=== PATIENT | female | born 1970 | race Caucasian/White ===

== ENCOUNTER 2017-04-03 10:04 | Emergency (ER) | payer OTHER ==
[~2017-04-03] VITALS: Ht 172.7 cm; Wt 90.7 kg
[~2017-04-03 10:04] MED LIST: ANTIVERT25 M1 PO; AVAPRO300 MG PO; CARDIZEM CD180 M1 PO; CARDIZEM CD240 MG PO; CARTIA XT180 MG PO; CARdura 2MG TABLET PO; CEFTIN250 MG/5 M PO; CIPRO500 MG PO; COUMADIN2 MG PO; COZAAR50 MG PO; DOXAZOSIN MESYLA1 MG PO; DURAGESIC1 EACH TD; FLAGYL500MG PO; FOLIC ACID1 MG PO; INTEGRA PLUS C1 EACH PO; INTESTINEX1 CA1 PO; INTESTINEX1 CAP PO; IRBESARTAN300 MG PO; LEVSIN/SL0.125 MG PO; MACRODANTIN100 MG PO; MEDROLPACK PO; Neurin-Sl Tablet Sl SL; OMEPRAZOLE20 M1 PO; ORPH100T PO; PERCOCET 5/321 UDTAB PO; PERCOCET 5/3251 TAB PO; PROTONIX40 MG PO; SINGULAIR5 MG PO; TIGAN300 MG PO; TRAM1TAB98 PO; TRAMADOL HCL-AP1 TAB PO; ZANTAC150 M3 PO; ZOFRAN4 MG PO; ZOFRAN8 MG PO
[2017-04-03] MEDS ORDERED: NEURONTIN600 MG (10:32)
[2017-04-03] MEDS ORDERED: CATAFLAN (10:32)
== END 2017-04-03 20:23 | disposition home or self-care (01) ==
LOC: ER 10:04
DX: N20.0 Calculus of kidney (principal); R10.814 Left lower quadrant abdominal tenderness

== ENCOUNTER → 2017-04-25 | Emergency (ER) | payer OTHER ==
[~2017-04-25] VITALS: Ht 172.7 cm; Wt 90.7 kg
[~2017-04-25] MED LIST changes: +CATAFLAN; +NEURONTIN600 MG; +ZOFRAN ODT4 MG PO
== END | disposition home or self-care (01) ==
LOC: ER 20:04
DX: K52.9 Noninfective gastroenteritis and colitis, unspecified (principal)

== ENCOUNTER → 2017-05-29 | Emergency (ER) | payer OTHER ==
[~2017-05-29] VITALS: Ht 172.7 cm; Wt 90.7 kg
[~2017-05-29] MED LIST changes: +VISTARIL50 MG PO
== END | disposition home or self-care (01) ==
LOC: ER 23:39
DX: R00.2 Palpitations (principal); F41.8 Other specified anxiety disorders; T48.6X5A Adverse effect of antiasthmatics, initial encounter; Y92.89 Other specified places as the place of occurrence of the external cause

== ENCOUNTER → 2017-05-30 | Emergency (ER) | payer OTHER ==
[~2017-05-30] VITALS: Ht 172.7 cm; Wt 90.7 kg
== END | disposition home or self-care (01) ==
LOC: ER 18:42
DX: K52.9 Noninfective gastroenteritis and colitis, unspecified (principal)

== ENCOUNTER 2017-06-14 20:15 | Emergency (ER) | payer OTHER ==
[~2017-06-14] VITALS: Ht 172.7 cm; Wt 90.7 kg
== END 2017-06-15 12:42 | disposition home or self-care (01) ==
LOC: ER 20:15
DX: L03.116 Cellulitis of left lower limb (principal); L03.115 Cellulitis of right lower limb; R11.0 Nausea

== ENCOUNTER 2017-06-21 10:42 | Outpatient (CLI) | payer OTHER | END 2017-06-21 10:55 | disposition home or self-care (01) | LOC: SONOGRAMA 10:42 | DX: R59.0 Localized enlarged lymph nodes (principal) ==

== ENCOUNTER 2017-08-25 13:41 | Emergency (ER) | payer OTHER ==
[~2017-08-25] VITALS: Ht 172.7 cm; Wt 90.7 kg
== END 2017-08-25 20:32 | disposition home or self-care (01) ==
LOC: ER 13:41 → CPU-OBS 14:08 → ER 20:32
DX: R07.89 Other chest pain (principal); T45.515A Adverse effect of anticoagulants, initial encounter; Y92.098 Other place in other non-institutional residence as the place of occurrence of the external cause
CPT/HCPCS: G0378; G0379; 93005

== ENCOUNTER 2017-09-30 10:31 | Emergency (ER) | payer OTHER ==
[~2017-09-30] VITALS: Ht 170.2 cm; Wt 83.9 kg
== END 2017-09-30 16:08 | disposition home or self-care (01) ==
LOC: ER 10:31
DX: N39.0 Urinary tract infection, site not specified (principal); M54.5 Low back pain; F06.4 Anxiety disorder due to known physiological condition

== ENCOUNTER 2017-10-12 08:37 | Outpatient (CLI) | payer OTHER | END 2017-10-12 12:34 | disposition home or self-care (01) | LOC: SONOGRAMA 08:37 | DX: I82.513 Chronic embolism and thrombosis of femoral vein, bilateral (principal) ==

== ENCOUNTER 2017-12-29 10:07 | Outpatient (CLI) | payer OTHER | END 2017-12-29 10:18 | disposition home or self-care (01) | LOC: SONOGRAMA 10:07 → MAMO-SONO 10:15 → SONOGRAMA 10:18 | DX: E04.1 Nontoxic single thyroid nodule (principal); E83.52 Hypercalcemia; E78.2 Mixed hyperlipidemia; I11.9 Hypertensive heart disease without heart failure; I82.503 Chronic embolism and thrombosis of unspecified deep veins of lower extremity, bilateral; E56.8 Deficiency of other vitamins; R73.01 Impaired fasting glucose ==

== ENCOUNTER 2018-01-03 02:10 | Emergency (ER) | payer OTHER ==
[~2018-01-03] VITALS: Ht 172.7 cm; Wt 84.4 kg
[2018-01-03] MEDS ORDERED: ATIVAN0.5 M1 (02:34)
== END 2018-01-03 08:48 | disposition home or self-care (01) ==
LOC: ER 02:10
DX: T42.4X5A Adverse effect of benzodiazepines, initial encounter (principal); R25.8 Other abnormal involuntary movements

== ENCOUNTER 2018-03-19 08:40 | Outpatient (CLI) | payer OTHER ==
[~2018-03-19 08:40] MED LIST changes: +ATIVAN0.5 M1
== END 2018-03-19 09:30 | disposition home or self-care (01) ==
LOC: NUCLEAR 08:40
DX: E83.52 Hypercalcemia (principal); E78.2 Mixed hyperlipidemia; I11.9 Hypertensive heart disease without heart failure; I82.503 Chronic embolism and thrombosis of unspecified deep veins of lower extremity, bilateral; E21.0 Primary hyperparathyroidism; E55.9 Vitamin D deficiency, unspecified; E56.8 Deficiency of other vitamins; R73.01 Impaired fasting glucose
CPT/HCPCS: 78070; A9500

== ENCOUNTER 2018-03-25 19:40 | Emergency (ER) | payer OTHER ==
[~2018-03-25] VITALS: Ht 172.7 cm; Wt 83.9 kg
== END 2018-03-25 20:55 | disposition home or self-care (01) ==
LOC: ER 19:40
DX: R07.89 Other chest pain (principal); I10 Essential (primary) hypertension; M54.32 Sciatica, left side; I80.10 Phlebitis and thrombophlebitis of unspecified femoral vein

== ENCOUNTER 2018-04-03 07:25 | Outpatient (CLI) | payer OTHER ==
[~2018-04-03 07:25] MED LIST changes: -NEURONTIN600 MG; +NEURONTIN600 MG PO
== END 2018-04-03 08:00 | disposition home or self-care (01) ==
LOC: NUCLEAR 07:25
DX: I20.9 Angina pectoris, unspecified (principal)
CPT/HCPCS: 78452; 93017; J0153; A9500

== ENCOUNTER 2018-04-08 22:48 | Emergency (ER) | payer OTHER ==
[~2018-04-08] VITALS: Ht 172.7 cm; Wt 83.9 kg
[2018-04-08] MEDS ORDERED: REGLAN5 MG/5 ML (23:36)
[2018-04-10] MEDS ORDERED: NABUMETONE750 MG PO (14:15)
== END 2018-04-09 08:12 | disposition home or self-care (01) ==
LOC: ER 22:48
DX: K57.92 Diverticulitis of intestine, part unspecified, without perforation or abscess without bleeding (principal); R10.32 Left lower quadrant pain

== ENCOUNTER 2018-04-10 13:47 | Emergency (ER) | payer OTHER ==
[~2018-04-10] VITALS: Ht 172.7 cm; Wt 83.9 kg
[~2018-04-10 13:47] MED LIST changes: +REGLAN5 MG/5 ML
[2018-04-10] MEDS ORDERED: NABUMETONE750 MG PO (14:15)
== END 2018-04-10 17:57 | disposition home or self-care (01) ==
LOC: ER 13:47
DX: N20.0 Calculus of kidney (principal); K52.9 Noninfective gastroenteritis and colitis, unspecified; R10.13 Epigastric pain

== ENCOUNTER 2018-04-25 08:21 | Outpatient (CLI) | payer OTHER ==
[~2018-04-25 08:21] MED LIST changes: +NABUMETONE750 MG PO
[2018-05-01] MEDS ORDERED: PROMETHAZINE HC25 MG PO (02:39)
[2018-05-01] MEDS ORDERED: SKELAXIN800 MG PO (02:39)
[2018-05-01] MEDS ORDERED: ZOFRAN ODT4 MG SL (02:55)
== END 2018-04-25 09:00 | disposition home or self-care (01) ==
LOC: NUCLEAR 08:21
DX: I73.9 Peripheral vascular disease, unspecified (principal); I87.2 Venous insufficiency (chronic) (peripheral); M89.9 Disorder of bone, unspecified; R93.5 Abnormal findings on diagnostic imaging of other abdominal regions, including retroperitoneum

== ENCOUNTER → 2018-04-26 | Outpatient (CLI) | payer OTHER ==
[~2018-04-26] MED LIST changes: +PROMETHAZINE HC25 MG PO; +SKELAXIN800 MG PO; +ZOFRAN ODT4 MG SL
== END | disposition home or self-care (01) ==
LOC: NUCLEAR 09:47
DX: I87.2 Venous insufficiency (chronic) (peripheral) (principal); I73.9 Peripheral vascular disease, unspecified; M89.9 Disorder of bone, unspecified; R93.5 Abnormal findings on diagnostic imaging of other abdominal regions, including retroperitoneum

== ENCOUNTER → 2018-04-30 | Emergency (ER) | payer OTHER ==
[~2018-04-30] VITALS: Ht 172.7 cm; Wt 81.6 kg
== END | disposition home or self-care (01) ==
LOC: ER 21:19
DX: M94.0 Chondrocostal junction syndrome [Tietze] (principal); R07.89 Other chest pain

== ENCOUNTER 2018-10-01 13:45 | Outpatient (CLI) | payer OTHER | END 2018-10-01 14:13 | disposition home or self-care (01) | LOC: NUCLEAR 13:45 | DX: I87.2 Venous insufficiency (chronic) (peripheral) (principal) ==

== ENCOUNTER 2018-11-08 12:43 | Emergency (ER) | payer OTHER ==
[~2018-11-08] VITALS: Ht 172.7 cm; Wt 81.6 kg
[2018-11-08] MEDS ORDERED: CIPRO500 MG PO (21:43)
[2018-11-08] MEDS ORDERED: FLAGYL500MG PO (21:43)
== END 2018-11-08 21:56 | disposition home or self-care (01) ==
LOC: ER 12:43
DX: K57.92 Diverticulitis of intestine, part unspecified, without perforation or abscess without bleeding (principal); N20.0 Calculus of kidney; R10.32 Left lower quadrant pain

== ENCOUNTER 2018-11-27 15:50 | Emergency (ER) | payer OTHER ==
[~2018-11-27] VITALS: Ht 172.7 cm; Wt 83.9 kg
== END 2018-11-27 18:59 | disposition home or self-care (01) ==
LOC: ER 15:50
DX: S80.02XA Contusion of left knee, initial encounter (principal); S70.02XA Contusion of left hip, initial encounter; S40.012A Contusion of left shoulder, initial encounter; S30.0XXA Contusion of lower back and pelvis, initial encounter; W18.39XA Other fall on same level, initial encounter; Y93.89 Activity, other specified; Y92.89 Other specified places as the place of occurrence of the external cause; Y99.8 Other external cause status

== ENCOUNTER 2019-02-01 15:07 | Emergency (ER) | payer OTHER ==
[~2019-02-01] VITALS: Ht 172.7 cm; Wt 86.6 kg
== END 2019-02-01 19:17 | disposition home or self-care (01) ==
LOC: ER 15:07
DX: M94.0 Chondrocostal junction syndrome [Tietze] (principal)

== ENCOUNTER 2019-04-01 10:19 | Outpatient (CLI) | payer OTHER | END 2019-04-01 10:29 | disposition home or self-care (01) | LOC: MAMO-SONO 10:19 | DX: Z12.31 Encounter for screening mammogram for malignant neoplasm of breast (principal); N63.10 Unspecified lump in the right breast, unspecified quadrant; N63.20 Unspecified lump in the left breast, unspecified quadrant; E11.9 Type 2 diabetes mellitus without complications; E78.2 Mixed hyperlipidemia; I11.9 Hypertensive heart disease without heart failure; I82.503 Chronic embolism and thrombosis of unspecified deep veins of lower extremity, bilateral; E55.9 Vitamin D deficiency, unspecified; E56.8 Deficiency of other vitamins ==

== ENCOUNTER 2019-04-01 12:04 | Outpatient (CLI) | payer OTHER | END 2019-04-01 13:22 | disposition home or self-care (01) | LOC: NUCLEAR 12:04 | DX: I87.2 Venous insufficiency (chronic) (peripheral) (principal); E83.52 Hypercalcemia; E78.2 Mixed hyperlipidemia; I11.9 Hypertensive heart disease without heart failure; I82.503 Chronic embolism and thrombosis of unspecified deep veins of lower extremity, bilateral; E21.0 Primary hyperparathyroidism; E55.9 Vitamin D deficiency, unspecified; E56.8 Deficiency of other vitamins; R73.01 Impaired fasting glucose; M81.0 Age-related osteoporosis without current pathological fracture ==

== ENCOUNTER 2019-09-07 16:05 | Emergency (ER) | payer OTHER ==
[~2019-09-07] VITALS: Ht 167.6 cm; Wt 90.7 kg
== END 2019-09-07 21:40 | disposition home or self-care (01) ==
LOC: ER 16:05
DX: K57.90 Diverticulosis of intestine, part unspecified, without perforation or abscess without bleeding (principal); K52.9 Noninfective gastroenteritis and colitis, unspecified; E86.0 Dehydration; J32.8 Other chronic sinusitis; R10.84 Generalized abdominal pain

== ENCOUNTER 2019-09-14 09:56 | Emergency (ER) | payer OTHER ==
[~2019-09-14] VITALS: Ht 269.2 cm; Wt 90.7 kg
== END 2019-09-14 18:16 | disposition home or self-care (01) ==
LOC: ER 09:56
DX: R10.13 Epigastric pain (principal); K42.9 Umbilical hernia without obstruction or gangrene; E86.0 Dehydration; Z20.828 Contact with and (suspected) exposure to other viral communicable diseases
CPT/HCPCS: 74176; 76700; G0378; G0379

== ENCOUNTER 2019-10-08 13:34 | Emergency (ER) | payer OTHER ==
[~2019-10-08] VITALS: Ht 167.6 cm; Wt 88.9 kg
[2019-10-08] MEDS ORDERED: PROVENTIL HFA6.7 GM (14:13)
== END 2019-10-08 22:41 | disposition left against medical advice (07) ==
LOC: ER 13:34
DX: I82.433 Acute embolism and thrombosis of popliteal vein, bilateral (principal); I10 Essential (primary) hypertension; J45.909 Unspecified asthma, uncomplicated; Z88.8 Allergy status to other drugs, medicaments and biological substances; E66.8 Other obesity; L03.115 Cellulitis of right lower limb; L03.116 Cellulitis of left lower limb; I82.411 Acute embolism and thrombosis of right femoral vein; T45.511A Poisoning by anticoagulants, accidental (unintentional), initial encounter; Y92.89 Other specified places as the place of occurrence of the external cause; D64.89 Other specified anemias; E11.9 Type 2 diabetes mellitus without complications

== ENCOUNTER 2019-10-20 21:59 | Emergency (ER) | payer OTHER ==
[~2019-10-20] VITALS: Ht 167.6 cm; Wt 90.7 kg
[~2019-10-20 21:59] MED LIST changes: +PROVENTIL HFA6.7 GM
== END 2019-10-21 12:06 | disposition home or self-care (01) ==
LOC: ER 21:59
DX: K29.00 Acute gastritis without bleeding (principal); T36.8X5A Adverse effect of other systemic antibiotics, initial encounter; Y92.89 Other specified places as the place of occurrence of the external cause

== ENCOUNTER 2019-11-06 17:17 | Emergency (ER) | payer OTHER ==
[~2019-11-06] VITALS: Ht 167.6 cm; Wt 90.7 kg
[2019-11-06] MEDS ORDERED: IRBESARTAN-HCT1 EAC1 (17:57)
[2019-11-06] MEDS ORDERED: GLIPIZIDE XL2.5 MG (17:57)
[2019-11-06] MEDS ORDERED: CARDIZEM CD240 MG (17:58)
[2019-11-06] MEDS ORDERED: CARDURA XL8 MG (17:58)
[2019-11-08] MEDS ORDERED: BREO ELLIPTA 21 EACH (11:47)
== END 2019-11-06 23:14 | disposition home or self-care (01) ==
LOC: ER 17:17
DX: J21.9 Acute bronchiolitis, unspecified (principal); R05 Cough; R50.9 Fever, unspecified; R06.02 Shortness of breath; Z20.828 Contact with and (suspected) exposure to other viral communicable diseases

== ENCOUNTER → 2019-11-08 | Emergency (ER) | payer OTHER ==
[~2019-11-08] VITALS: Ht 167.6 cm; Wt 90.7 kg
[~2019-11-08] MED LIST changes: +BREO ELLIPTA 21 EACH; +CARDIZEM CD240 MG; +CARDURA XL8 MG; +GLIPIZIDE XL2.5 MG; +IRBESARTAN-HCT1 EAC1
== END | disposition home or self-care (01) ==
LOC: EMR PED 11:34 → ER 11:36 → EMR PED 11:36
DX: U07.1 COVID-19 (principal); R06.02 Shortness of breath

== ENCOUNTER → 2019-12-24 11:16 | Outpatient (CLI) | payer OTHER | END | disposition home or self-care (01) | LOC: LAB 11:16 | PROVIDERS: ATTEND Internal Medicine Hematology & Oncology | DX: D68.8 Other specified coagulation defects (principal) ==

== ENCOUNTER 2020-07-23 13:35 | Outpatient (CLI) | payer OTHER | END 2020-07-23 13:37 | disposition home or self-care (01) | LOC: NUCLEAR 13:35 | PROVIDERS: ATTEND Internal Medicine | DX: M81.0 Age-related osteoporosis without current pathological fracture (principal); J45.40 Moderate persistent asthma, uncomplicated; E83.52 Hypercalcemia ==

== ENCOUNTER 2021-01-05 09:15 | Inpatient (IN) | payer OTHER ==
[2021-01-05] MEDS ORDERED: CINACALCET HCL30 MG (12:14)
[2021-01-05] MEDS ORDERED: PENTOXIFYLLINE400 MG (12:15)
[2021-01-05] MEDS ORDERED: JANTOVEN3 MG (12:15)
[2021-01-05] MEDS ORDERED: BACLOFEN20 MG (12:16)
[2021-01-05] MEDS ORDERED: LEXAPRO20 MG (12:16)
[2021-01-05] MEDS ORDERED: LORAZEPAM1 MG (12:16)
[2021-01-05] MEDS ORDERED: TRAMADOL HCL E100 M1 (12:17)
[2021-01-05] MEDS ORDERED: GABAPENTIN PO (12:17)
[2021-01-14] MEDS ORDERED: PERCOCET 5-3251 EACH PO (17:32)
[2021-01-14] MEDS ORDERED: CIPRO500 MG PO (17:32)
[2021-01-14] MEDS ORDERED: ELIQUIS2.5 MG PO (17:32)
== END 2021-01-14 22:12 | disposition home or self-care (01) | DRG 470 ==
LOC: O/R 01-12 06:10 → SURH 01-12 06:10 → EDBD 01-12 09:15 → SURH 01-12 09:45
PROVIDERS: ADMIT Orthopaedic Surgery; ATTEND Orthopaedic Surgery
PROC: 0SRD0J9 Replacement of Left Knee Joint with Synthetic Substitute, Cemented, Open Approach (ICD-10-PCS; principal; 2021-01-12 09:45)
DX: M17.12 Unilateral primary osteoarthritis, left knee (principal); D62 Acute posthemorrhagic anemia; E72.12 Methylenetetrahydrofolate reductase deficiency; M22.12 Recurrent subluxation of patella, left knee; M81.0 Age-related osteoporosis without current pathological fracture

== ENCOUNTER 2021-06-14 10:05 | Outpatient (CLI) | payer OTHER ==
[~2021-06-14 10:05] MED LIST changes: +BACLOFEN20 MG; +CINACALCET HCL30 MG; +ELIQUIS2.5 MG PO; +GABAPENTIN PO; +JANTOVEN3 MG; +LEXAPRO20 MG; +LORAZEPAM1 MG; +PENTOXIFYLLINE400 MG; +PERCOCET 5-3251 EACH PO; +TRAMADOL HCL E100 M1
== END 2021-06-14 10:06 | disposition home or self-care (01) ==
LOC: NUCLEAR 10:05
PROVIDERS: ATTEND Internal Medicine Cardiovascular Disease
DX: I80.209 Phlebitis and thrombophlebitis of unspecified deep vessels of unspecified lower extremity (principal); I11.9 Hypertensive heart disease without heart failure

== ENCOUNTER 2021-08-11 05:31 | Day surgery (SDC) | payer OTHER ==
[~2021-08-11] VITALS: Ht 167.6 cm; Wt 62.6 kg
[~2021-08-11 05:31] MED LIST changes: +AMBIEN10 MG PO; +CRESTOR20 MG PO
[2021-08-11] MEDS ORDERED: PERCOCET 5-3251 EACH PO (09:19)
== END 2021-08-11 11:45 | disposition home or self-care (01) ==
LOC: CIR.AMB 05:31
PROVIDERS: ATTEND Surgery
DX: D35.1 Benign neoplasm of parathyroid gland (principal); E21.0 Primary hyperparathyroidism; Z91.013 Allergy to seafood; Z88.2 Allergy status to sulfonamides; Z88.8 Allergy status to other drugs, medicaments and biological substances; Z91.041 Radiographic dye allergy status; Z20.822 Contact with and (suspected) exposure to COVID-19; I10 Essential (primary) hypertension; J45.909 Unspecified asthma, uncomplicated; Z79.84 Long term (current) use of oral hypoglycemic drugs; E11.9 Type 2 diabetes mellitus without complications

== ENCOUNTER 2021-10-18 12:18 | Emergency (ER) | payer OTHER ==
[~2021-10-18] VITALS: Ht 167.6 cm; Wt 61.2 kg
[2021-10-18] MEDS ORDERED: ULTRACET (12:47)
[2021-10-18] MEDS ORDERED: LEVSIN/SL0.125 MG SL (18:36)
[2021-10-18] MEDS ORDERED: PEPCID AC20 MG PO (18:36)
== END 2021-10-18 18:59 | disposition home or self-care (01) ==
LOC: ER 12:18
DX: R10.84 Generalized abdominal pain (principal)

== ENCOUNTER 2021-10-21 13:28 | Outpatient (CLI) | payer OTHER ==
[~2021-10-21 13:28] MED LIST changes: +LEVSIN/SL0.125 MG SL; +PEPCID AC20 MG PO; +ULTRACET
== END 2021-10-21 13:32 | disposition home or self-care (01) ==
LOC: MAMO-SONO 13:28
PROVIDERS: ATTEND Internal Medicine Cardiovascular Disease
DX: Z12.31 Encounter for screening mammogram for malignant neoplasm of breast (principal); N63.11 Unspecified lump in the right breast, upper outer quadrant

== ENCOUNTER 2022-03-08 19:13 | Emergency (ER) | payer OTHER ==
[~2022-03-08] VITALS: Ht 170.2 cm; Wt 61.7 kg
[2022-03-08] MEDS ORDERED: SINGULAIR10 MG (19:59)
[2022-03-08] MEDS ORDERED: ELIQUIS5 MG (20:00)
[2022-03-09] MEDS ORDERED: ZYNCOF 20-400120 ML PO (02:45)
== END 2022-03-09 02:48 ==
LOC: ER 19:13
DX: B34.9 Viral infection, unspecified (principal); Z20.822 Contact with and (suspected) exposure to COVID-19

== ENCOUNTER 2022-04-18 15:03 | Emergency (ER) | payer OTHER ==
[~2022-04-18] VITALS: Ht 165.1 cm; Wt 62.6 kg
[~2022-04-18 15:03] MED LIST changes: +ELIQUIS5 MG; +SINGULAIR10 MG; +ZYNCOF 20-400120 ML PO
== END 2022-04-18 23:26 | disposition home or self-care (01) ==
LOC: ER 15:03
DX: J45.909 Unspecified asthma, uncomplicated (principal); J40 Bronchitis, not specified as acute or chronic; Z91.041 Radiographic dye allergy status; Z20.822 Contact with and (suspected) exposure to COVID-19

== ENCOUNTER 2022-04-26 05:31 | Emergency (ER) | payer OTHER ==
[~2022-04-26] VITALS: Ht 170.2 cm; Wt 61.7 kg
[2022-04-26] MEDS ORDERED: PREDNISONE20 MG (05:57)
[2022-04-26] MEDS ORDERED: GABAPENTIN800 M1 PO (05:58)
[2022-04-26] MEDS ORDERED: BREO ELLIPTA 21 EACH IH (05:58)
== END 2022-04-26 10:00 | disposition home or self-care (01) ==
LOC: ER 05:31
DX: J45.902 Unspecified asthma with status asthmaticus (principal); Z91.013 Allergy to seafood; Z91.041 Radiographic dye allergy status; Z88.2 Allergy status to sulfonamides; Z88.8 Allergy status to other drugs, medicaments and biological substances; Z20.822 Contact with and (suspected) exposure to COVID-19

== ENCOUNTER 2022-06-21 07:55 | Outpatient (CLI) | payer OTHER ==
[~2022-06-21 07:55] MED LIST changes: +BREO ELLIPTA 21 EACH IH; +GABAPENTIN800 M1 PO; +PREDNISONE20 MG
== END 2022-06-21 08:01 | disposition home or self-care (01) ==
LOC: NUCLEAR 07:55
PROVIDERS: ATTEND Internal Medicine Hematology & Oncology
DX: I80.222 Phlebitis and thrombophlebitis of left popliteal vein (principal); I80.221 Phlebitis and thrombophlebitis of right popliteal vein; I82.531 Chronic embolism and thrombosis of right popliteal vein; I82.532 Chronic embolism and thrombosis of left popliteal vein; E72.11 Homocystinuria; E72.12 Methylenetetrahydrofolate reductase deficiency; F33.9 Major depressive disorder, recurrent, unspecified; E11.9 Type 2 diabetes mellitus without complications; I10 Essential (primary) hypertension

== ENCOUNTER → 2022-11-21 09:42 | Outpatient (CLI) | payer OTHER | END | disposition home or self-care (01) | LOC: NUCLEAR 09:42 | PROVIDERS: ATTEND Internal Medicine Hematology & Oncology | DX: I82.531 Chronic embolism and thrombosis of right popliteal vein (principal); I82.532 Chronic embolism and thrombosis of left popliteal vein; D68.61 Antiphospholipid syndrome; E72.12 Methylenetetrahydrofolate reductase deficiency; F33.9 Major depressive disorder, recurrent, unspecified; E11.9 Type 2 diabetes mellitus without complications; I10 Essential (primary) hypertension ==

== ENCOUNTER 2022-11-22 08:25 | Outpatient (CLI) | payer OTHER | END 2022-11-22 08:27 | disposition home or self-care (01) | LOC: NUCLEAR 08:25 | PROVIDERS: ATTEND Internal Medicine Hematology & Oncology | DX: I70.213 Atherosclerosis of native arteries of extremities with intermittent claudication, bilateral legs (principal) ==

== ENCOUNTER 2023-01-10 07:57 | Emergency (ER) | payer OTHER ==
[~2023-01-10] VITALS: Ht 170.2 cm; Wt 72.6 kg
[2023-01-10] MEDS ORDERED: FARXIGA5 MG PO (08:32)
[2023-01-10 10:42] LABS: HEMATOCRIT 38.9 % (36.0-45.00); HEMOGLOBIN 12.7 g/dL (12.0-15.00); MEAN CELL VOLUME 95.6 fL (80.00-100.00); MEAN CORPUSCULAR HEMOGLOBIN 31.3 pg (27.00-32.0); MEAN CORPUSCULAR HGB CONC 32.7 g/dl (32.0-36.0); PLATELET COUNT 230 K/uL (150-450); RED BLOOD COUNT 4.07 M/uL (4.00-6.00); RED CELL DISTRIBUTION WIDTH 14.6 % (11.5-14.5)
[2023-01-10 11:06] LABS: INR 0.98; PARTIAL THROMBOPLASTIN TIME 26.1 SECONDS (22.0-34.0); PROTHROMBIN TIME 10.3 SECONDS (9.0-11.5)
[2023-01-10 11:18] LABS: ALBUMIN 3.7 gm/dL (3.4-5.0); BILIRUBIN TOTAL 0.39 mg/dL (0.3-1.2); CALCIUM 9.9 mg/dL (8.5-10.1); CREATININE SERUM 1.17 mg/dL (0.55-1.02); GFR 48.39; GLOBULINA 3.5 G/DL (2.4-3.5); POTASSIUM 4.33 mEq/L (3.5-5.1); TOTAL PROTEIN 7.2 gm/dL (6.4-8.2)
[2023-01-10 12:21] LABS: URINE APPEARANCE Clear; URINE BILIRRUBIN Negative (NEGATIVE); URINE BLOOD Negative; URINE COLOR Yellow; URINE LEUKOCYTE Negative; URINE NITRATE Negative; URINE PROTEIN Negative (NEGATIVE); URINE UROBILINOGEN 0.2 E.U./dl
[2023-01-10 12:25] LABS: URINE BACTERIA 22.6 uL (0.0-1933); URINE EPITHELIAL CELLS 8.3 uL (0.0-38.8); URINE RBC 6.7 uL (0.0-20.8); URINE WBC 47.4 uL (0.0-23.2)
[2023-01-10 12:29] LABS: URINE GLUCOSE >=1000 MG/DL (NEGATIVE)
== END 2023-01-10 15:01 | disposition home or self-care (01) ==
LOC: ER 07:57
PROVIDERS: Emergency Medicine
DX: L03.115 Cellulitis of right lower limb (principal); E11.9 Type 2 diabetes mellitus without complications; Z91.041 Radiographic dye allergy status; I10 Essential (primary) hypertension; Z20.822 Contact with and (suspected) exposure to COVID-19

== ENCOUNTER 2023-03-03 12:33 | Outpatient (CLI) | payer OTHER ==
[~2023-03-03 12:33] MED LIST changes: +FARXIGA5 MG PO
== END 2023-03-03 12:34 | disposition home or self-care (01) ==
LOC: NUCLEAR 12:33
DX: M81.0 Age-related osteoporosis without current pathological fracture (principal); I87.2 Venous insufficiency (chronic) (peripheral); N18.2 Chronic kidney disease, stage 2 (mild); I82.503 Chronic embolism and thrombosis of unspecified deep veins of lower extremity, bilateral; I11.9 Hypertensive heart disease without heart failure; E11.69 Type 2 diabetes mellitus with other specified complication; E83.52 Hypercalcemia

== ENCOUNTER 2023-05-29 08:25 | Outpatient (CLI) | payer OTHER | END 2023-05-29 08:54 | disposition home or self-care (01) | LOC: MAMO-SONO 08:25 | PROVIDERS: ATTEND Physical Medicine & Rehabilitation | DX: M17.11 Unilateral primary osteoarthritis, right knee (principal); M25.561 Pain in right knee; M54.50 Low back pain, unspecified; M54.16 Radiculopathy, lumbar region; Z98.1 Arthrodesis status; Z12.31 Encounter for screening mammogram for malignant neoplasm of breast; Z12.39 Encounter for other screening for malignant neoplasm of breast | CPT/HCPCS: 72148 ==

== ENCOUNTER 2023-08-16 08:02 | Outpatient (CLI) | payer OTHER | END 2023-08-16 08:12 | disposition home or self-care (01) | LOC: NUCLEAR 08:02 | PROVIDERS: ATTEND Internal Medicine | DX: I73.9 Peripheral vascular disease, unspecified (principal); I87.2 Venous insufficiency (chronic) (peripheral) ==

== ENCOUNTER 2023-08-18 07:54 | Outpatient (CLI) | payer OTHER | END 2023-08-18 07:55 | disposition home or self-care (01) | LOC: NUCLEAR 07:54 | PROVIDERS: ATTEND Internal Medicine | DX: I73.9 Peripheral vascular disease, unspecified (principal); I87.2 Venous insufficiency (chronic) (peripheral) ==

== ENCOUNTER 2024-03-02 18:56 | Emergency (ER) | payer OTHER ==
[~2024-03-02] VITALS: Ht 172.7 cm; Wt 77.1 kg
[2024-03-02] MEDS ORDERED: METHYLPREDNISOLONE SOD SUCC 125 MG VIAL IV ONE (20:00)
[2024-03-02] MEDS ORDERED: LEVALBUTEROL HCL 1.25 MG/3 ML SOLUTION IH SCH (20:00)
[2024-03-02] MEDS ORDERED: IPRATROPIUM BROMIDE 0.5 MG/2.5 ML AMPUL.NEB IH SCH (20:00)
[2024-03-02] MEDS ORDERED: METHYLPREDNISOLONE SOD SUCC 40 MG VIAL ONE (20:34)
[2024-03-02] MEDS ORDERED: IPRATROPIUM BROMIDE 0.5 MG/2.5 ML AMPUL.NEB IH ONE (20:35)
[2024-03-02] MEDS ORDERED: LEVALBUTEROL HCL 1.25 MG/3 ML SOLUTION IH ONE (20:35)
[2024-03-02 21:00] LABS: HEMATOCRIT 42.2 % (36.0-45.00); HEMOGLOBIN 13.9 g/dL (12.0-15.00); MEAN CELL VOLUME 91.2 fL (80.00-100.00); MEAN CORPUSCULAR HEMOGLOBIN 30.1 pg (27.00-32.0); PLATELET COUNT 354 K/uL (150-450); RED BLOOD COUNT 4.63 M/uL (4.00-6.00); RED CELL DISTRIBUTION WIDTH 14.5 % (11.5-14.5)
[2024-03-02 21:51] LABS: CALCIUM 9.5 mg/dL (8.5-10.1); CREATININE SERUM 1.02 mg/dL (0.55-1.02); GFR 56.47; POTASSIUM 4.04 mEq/L (3.5-5.1)
== END 2024-03-02 22:44 | disposition home or self-care (01) ==
LOC: ER 18:58
PROVIDERS: General Practice
DX: J40 Bronchitis, not specified as acute or chronic (principal); I10 Essential (primary) hypertension; E11.9 Type 2 diabetes mellitus without complications; Z79.84 Long term (current) use of oral hypoglycemic drugs; Z88.8 Allergy status to other drugs, medicaments and biological substances; Z87.09 Personal history of other diseases of the respiratory system; Z91.041 Radiographic dye allergy status

== ENCOUNTER 2024-04-25 09:47 | Outpatient (CLI) | payer OTHER | END 2024-04-25 09:52 | disposition home or self-care (01) | LOC: RAD 09:47 | PROVIDERS: ATTEND Physical Medicine & Rehabilitation | DX: M17.11 Unilateral primary osteoarthritis, right knee (principal); M19.041 Primary osteoarthritis, right hand; E21.0 Primary hyperparathyroidism ==

== ENCOUNTER 2024-06-25 10:09 | Outpatient (CLI) | payer OTHER | END 2024-06-25 10:13 | disposition home or self-care (01) | LOC: RAD 10:09 | PROVIDERS: ATTEND Physical Medicine & Rehabilitation | DX: M54.50 Low back pain, unspecified (principal) ==

== ENCOUNTER 2024-06-27 10:06 | Outpatient (CLI) | payer OTHER | END 2024-06-27 10:09 | disposition home or self-care (01) | LOC: NUCLEAR 10:06 | PROVIDERS: ATTEND Internal Medicine Cardiovascular Disease | DX: I80.209 Phlebitis and thrombophlebitis of unspecified deep vessels of unspecified lower extremity (principal) ==

== ENCOUNTER 2024-08-05 11:37 | Emergency (ER) | payer OTHER ==
[~2024-08-05] VITALS: Ht 170.2 cm; Wt 70.3 kg
[2024-08-05] MEDS ORDERED: HYDROCODONE/CHLORPHEN P-STIREX 5 ML ML PO STA (13:21)
[2024-08-05] MEDS ORDERED: ACETAMINOPHEN 500 MG GEL..CAP PO STA (13:22)
[2024-08-05] MEDS ORDERED: ACETAMINOPHEN 500 MG GEL..CAP PO ONE (13:23)
[2024-08-05 13:59] LABS: BASO % 0.6 % (0.1-1.2); EOS # 0.04 (0.04-0.54); EOS % 0.6 % (0.7-7.0); HEMATOCRIT 36.9 % (34.1-44.9); HEMOGLOBIN 12.1 g/dL (11.2-15.7); LYMPH # 0.49 (1.18-3.74); LYMPH % 7.8 % (19.3-53.1); MEAN CORPUSCULAR HEMOGLOBIN 30.3 pg (25.6-32.2); MONO # 0.41 (0.24-0.82); MONO % 6.5 % (4.7-12.5); NEUT # 5.32 (1.56-6.13); NEUT % 84.3 % (34.0-71.1); PLATELET COUNT 195 K/uL (163-369); RED BLOOD COUNT 3.99 M/uL (3.93-5.22); RED CELL DISTRIBUTION WIDTH 14.5 % (11.6-14.4)
[2024-08-05 14:58] LABS: COVID-19 AG NEGATIVE (NEGATIVE)
[2024-08-05 15:03] LABS: INFLUENZA A AG NEGATIVE (NEGATIVE); INFLUENZA B AG NEGATIVE (NEGATIVE)
== END 2024-08-05 16:01 | disposition home or self-care (01) ==
LOC: ER 11:37
DX: J06.9 Acute upper respiratory infection, unspecified (principal); Z20.822 Contact with and (suspected) exposure to COVID-19; Z88.8 Allergy status to other drugs, medicaments and biological substances

== ENCOUNTER 2024-08-27 12:13 | Outpatient (CLI) | payer OTHER | END 2024-08-27 12:30 | disposition home or self-care (01) | LOC: MRI 12:13 | PROVIDERS: ATTEND Physical Medicine & Rehabilitation | DX: J45.50 Severe persistent asthma, uncomplicated (principal); J45.40 Moderate persistent asthma, uncomplicated; J30.9 Allergic rhinitis, unspecified; M25.561 Pain in right knee | CPT/HCPCS: 73721 ==

== ENCOUNTER 2025-02-09 13:10 | Emergency (ER) | payer OTHER ==
[~2025-02-09] VITALS: Ht 170.2 cm; Wt 71.7 kg
[2025-02-09] MEDS ORDERED: DIPHENHYDRAMINE HCL 50 MG/ML VIAL 1ML IV ONE (17:00)
[2025-02-09] MEDS ORDERED: ONDANSETRON HCL 2 MG/ML VIAL IV ONE (17:00)
[2025-02-09] MEDS ORDERED: FAMOTIDINE/PF 20 MG/2 ML VIAL IV ONE (17:00)
[2025-02-09] MEDS ORDERED: KETOROLAC TROMETHAMINE 30 MG VIAL IU ONE (17:00)
[2025-02-09] MEDS ORDERED: METHYLPREDNISOLONE SOD SUCC 125 MG VIAL IV ONE (17:00)
[2025-02-09 18:01] LABS: BASO % 0.3 % (0.1-1.2); EOS # 0.04 (0.04-0.54); EOS % 0.4 % (0.7-7.0); LYMPH # 1.18 (1.18-3.74); LYMPH % 12.9 % (19.3-53.1); MEAN PLATELET VOLUME 8.90 fl (9.4-12.4); MONO # 0.80 (0.24-0.82); MONO % 8.8 % (4.7-12.5); NEUT # 7.05 (1.56-6.13); NEUT % 77.4 % (34.0-71.1); RED CELL DISTRIBUTION WIDTH 14.7 % (11.6-14.4)
[2025-02-09 18:31] LABS: ALT/SGPT 44.0 U/L (12-78); AST/SGOT 18.0 U/L (15-37); BILIRUBIN TOTAL 0.72 mg/dL (0.3-1.2); BUN CREA RATIO 17.0 (7.0-25.0); CREATININE SERUM 0.87 mg/dL (0.55-1.02); GFR 67.6; GLOBULINA 3.4 G/DL (2.4-3.5); GLUCOSE FASTING 104.0 mg/dL (65-100); OSMOLALITY SERUM 290.0 MOSM/KG (275-295)
[2025-02-09 18:48] LABS: URINE APPEARANCE Clear; URINE BILIRRUBIN Negative (NEGATIVE); URINE BLOOD Negative; URINE COLOR Dark Yellow; URINE KETONE Trace (NEGATIVE); URINE LEUKOCYTE Moderate; URINE NITRATE Negative; URINE PROTEIN 30 (NEGATIVE); URINE UROBILINOGEN 1.0 E.U./dl
[2025-02-09 18:55] LABS: URINE BACTERIA 410.6 uL (0.0-1933); URINE EPITHELIAL CELLS 14.5 uL (0.0-38.8); URINE RBC 3.8 uL (0.0-20.8); URINE WBC 1424.3 uL (0.0-23.2)
[2025-02-09 19:06] LABS: URINE CAST 1.27 uL (0.0-1.40); URINE GLUCOSE >=1000 MG/DL (NEGATIVE)
[2025-02-09] MEDS ORDERED: PEPCID AC20 MG PO (21:11)
[2025-02-09] MEDS ORDERED: CIPRO500 MG PO (21:11)
[2025-02-09] MEDS ORDERED: KETO10TA2 PO (21:11)
[2025-02-09] MEDS ORDERED: CIPROFLOXACIN IN 5 % DEXTROSE 400 MG/200 ML PIGGYBAG IV ONE (21:15)
== END 2025-02-10 05:06 | disposition home or self-care (01) ==
LOC: ER 13:10
PROVIDERS: General Practice
DX: N39.0 Urinary tract infection, site not specified (principal); K57.30 Diverticulosis of large intestine without perforation or abscess without bleeding; K76.0 Fatty (change of) liver, not elsewhere classified; E11.9 Type 2 diabetes mellitus without complications; Z79.84 Long term (current) use of oral hypoglycemic drugs; I10 Essential (primary) hypertension; Z88.8 Allergy status to other drugs, medicaments and biological substances; Z91.041 Radiographic dye allergy status